=== PATIENT | male | born 1985 | race Two or more races ===

== ENCOUNTER 2021-08-05 21:45 | Emergency (ER) | payer OTHER ==
[~2021-08-05] VITALS: Ht 170.2 cm; Wt 68.0 kg
[2021-08-05 21:58] VITALS: BP 148/99
== END 2021-08-05 22:32 | disposition home or self-care (01) ==
LOC: ER 21:47 → EEVIPCON 21:47 → ER 22:32
DX: E16.2 Hypoglycemia, unspecified (principal)